=== PATIENT | male | born 1965 | race Asian ===

== ENCOUNTER 2021-04-11 10:45 | Day surgery (SDC) | payer OTHER, SELFPAY ==
[~2021-04-11] VITALS: Ht 167.6 cm; Wt 56.2 kg
[2021-04-11] MEDS ORDERED: fentaNYL citrate 0.05 MG/ML VIAL ONE (14:06)
[2021-04-11] MEDS ORDERED: MIDAZOLAM 5 MG/5 ML VIAL ONE ×2 (14:06→14:48)
[2021-04-11] MEDS ORDERED: LIDOCAINE 2% 100 MG/5 ML UJET TP ONE (14:07)
[2021-04-11] MEDS ORDERED: fentaNYL citrate 0.05 MG/ML VIAL IVP ONE (15:25)
[2021-04-11] MEDS ORDERED: MIDAZOLAM 2 MG/2 ML VIAL IVP ONE (15:25)
== END 2021-04-11 15:30 | disposition home or self-care (01) ==
LOC: MDS 10:45 → MMU 11:16 → MDS 15:30
PROVIDERS: ATTEND Internal Medicine Gastroenterology
DX: Z12.11 Encounter for screening for malignant neoplasm of colon (principal); D12.5 Benign neoplasm of sigmoid colon; R13.10 Dysphagia, unspecified; E78.00 Pure hypercholesterolemia, unspecified; Z79.82 Long term (current) use of aspirin; Z79.899 Other long term (current) drug therapy
CPT/HCPCS: 43235; 45385; 87426; J2250; J3010